=== PATIENT | female | born 1975 | race Hispanic/Latino ===

== ENCOUNTER → 2023-05-26 09:07 | Outpatient (REF) | payer OTHER, SELFPAY | LOC: WDC 09:07 | PROVIDERS: ATTENDING PHYSICIAN Physician Assistant | DX: R92.2 Inconclusive mammogram (principal) | CPT/HCPCS: 76641 ==

== ENCOUNTER → 2023-11-28 14:27 | Outpatient (REF) | payer OTHER, SELFPAY | LOC: WDC 14:27 | PROVIDERS: ATTENDING PHYSICIAN Physician Assistant | DX: R92.8 Other abnormal and inconclusive findings on diagnostic imaging of breast (principal) | CPT/HCPCS: 76642 ==

== ENCOUNTER → 2024-05-20 13:32 | Outpatient (REF) | payer OTHER, SELFPAY | LOC: WDC 13:32 | PROVIDERS: ATTENDING PHYSICIAN Physician Assistant | DX: Z12.31 Encounter for screening mammogram for malignant neoplasm of breast (principal); R92.8 Other abnormal and inconclusive findings on diagnostic imaging of breast | CPT/HCPCS: 76642; 77063; 77067 ==

== ENCOUNTER → 2024-05-27 10:01 | Outpatient (REF) | payer OTHER, SELFPAY | LOC: WDC 10:01 | PROVIDERS: ATTENDING PHYSICIAN Physician Assistant | DX: R92.8 Other abnormal and inconclusive findings on diagnostic imaging of breast (principal) | CPT/HCPCS: 77065 ==

== ENCOUNTER → 2024-06-03 06:16 | Outpatient (REF) | payer OTHER, SELFPAY ==
--- NOTE | 2024-06-03 09:25 | OID.BR.INTR ---
[facility] Breast Navigator - Initial
- -
Date of Contact: 06/03/24
Met with patient. Patient given written information on navigator services available at [facility]. Will follow up as needed per protocol.
== END ==
LOC: WDC 06:16
PROVIDERS: ATTENDING PHYSICIAN Physician Assistant
DX: R92.1 Mammographic calcification found on diagnostic imaging of breast (principal)
CPT/HCPCS: 88305; 19081; 76098; 88341; 88342; 88360; A4648

== ENCOUNTER → 2024-06-25 13:02 | Outpatient (REF) | payer OTHER, SELFPAY | LOC: WDC 13:02 | PROVIDERS: ATTENDING PHYSICIAN Surgery | DX: D05.91 Unspecified type of carcinoma in situ of right breast (principal) | CPT/HCPCS: 76641 ==

== ENCOUNTER → 2024-07-15 06:58 | Outpatient (REF) | payer OTHER, SELFPAY | LOC: WDC 06:58 | PROVIDERS: ATTENDING PHYSICIAN Surgery | DX: D05.91 Unspecified type of carcinoma in situ of right breast (principal) | CPT/HCPCS: 19281; A4648 ==

== ENCOUNTER 2024-07-16 06:08 | Day surgery (SDC) | payer OTHER, SELFPAY ==
[2024-07-01 08:39] LABS: Hematocrit 40.7 % (37.0-47.0); Hemoglobin 13.6 g/dL (12.0-16.0); Mean Corp Hgb Conc. 33.4 g/dL (33.0-37.0); Mean Corpuscular Hgb 32.4 pg (27.0-31.0); Mean Corpuscular Volume 96.9 fL (81.0-99.0); Platelet Count 149 10^3/uL (130-400); Red Cell Dist. Width 12.8 % (11.5-14.5)
[2024-07-01 09:08] LABS: ALT (SGPT) 15 U/L (0-35); AST (SGOT) 18 U/L (14-36); Albumin 3.7 g/dl (3.5-5.0); Alkaline Phosphatase 55 U/L (38-126); Blood Urea Nitrogen 14 mg/dl (7-17); Calcium 8.7 mg/dl (8.4-10.2); Carbon Dioxide 27 mmol/L (22-30); Chloride 105 mmol/L (98-107); Glucose 96 mg/dl (70-99); Potassium 4.1 mmol/L (3.5-5.1); Sodium 136 mmol/L (135-145); Total Bilirubin 0.7 mg/dl (0.2-1.3); Total Protein 6.3 g/dl (6.3-8.2); eGFR > 60.00
[2024-07-01 11:23] LABS: Prealbumin (Transthyretin) 19.5 mg/dl (17.6-36.0)
[2024-07-01 11:34] LABS: Vitamin D, 25-OH*** 75.2 ng/mL (30-80)
[2024-07-01 13:37] VITALS: BMI 19.8
[2024-07-16] VITALS (10 sets, daily range): BP systolic 97–118; BP diastolic 55–76; BMI 19.8
[2024-07-16] MEDS: NORMOSOL-R/PLASMALYTE-A 1000 IV (07:35)
[2024-07-16] MEDS: TYLENOL 1000 MG PO (07:57)
[2024-07-16] MEDS: LOVENOX 40 MG SC (10:30)
--- NOTE | 2024-07-16 12:10 | W.IMMPOSTOP ---
Surgical Immed Post Op Note
-
Primary Surgeon: Lexis
Assisting Surgeon: None
Pre-op Diagnosis: Right breast DCIS
Post-op Diagnosis: Right breast DCIS
Procedure Performed: Right localized lumpectomy and oncoplastic mastoplasty
Anesthesia Type: LMA
Specimen / Cultures: Right lumpectomy and margins
Estimated Blood Loss: 4cc
Complications: None
Operative Findings: Clip and reflector in specimen
--- NOTE | 2024-07-16 12:11 | OR.RPT ---
Operative Report
Operative Report
Date of surgery: 07/16/24
Surgeon: Lexis
Pre-Op DX: Right breast carcinoma
Post-Op DX: Right breast carcinoma
Procedure: Right localized lumpectomy and oncoplastic mastoplasty
The patient is a 49-year-old female who experienced an interval change in screening mammography leading to biopsy of right breast calcifications. This showed ductal carcinoma in situ and she presents for breast conservation surgery. On the day
prior to the procedure she presented to the breast center where a [employer] account assistant reflector was placed however the radiologist could not hear signal. On the day of surgery she presented to same-day surgical services where again I confirmed that there
was no audible signal therefore she was transferred to the breast [place] where a wire localization procedure was performed. DVT and antibiotic prophylaxis was provided. She confirmed site and procedure.
She was taken to the operating room in the supine position LMA anesthesia with TIVA was induced. Right breast was prepped and draped in usual sterile fashion. Appropriate timeout was performed by all staff.
Tissues were anesthetized with 1% lidocaine plain in a superior circumareolar incision was made sharply with the blade. Oncoplastic plane was entered and elevated using the blade and a lighted retractor. Dissection was carried over to the entry
site of the wire into the skin and the wire was delivered into the central portion of the wound. Wide lumpectomy was performed using the cautery. Time out of body was noted and the specimen was oriented for the pathologist. Specimen radiography
confirmed the presence of the biopsy clip and reflector within it. Additional margins were harvested for permanent analysis from the posterior, medial, superior, lateral, inferior, and anterior dimensions. These were arrived to this as well.
This left resulting defect of 4 x 3 cm therefore an oncoplastic closure was performed. Separate parenchymal incision was made to advance tissue into the resection cavity. Clips were placed in the resection cavity and tissues were instilled with
Marcaine 0.5% plain. The wound was closed using simple interrupted 3-0 plain deep intermediate and subcutaneous tissue and skin was closed with a running subcuticular 4-0 Monocryl. Surgical glue and a sterile compressive dressing was applied. All
sponge needle and instrument counts were correct and the patient was transferred to the recovery room in stable condition.
([id number])
== END 2024-07-16 14:00 | disposition home or self-care (01) ==
LOC: SDS 06:08
PROVIDERS: ATTENDING PHYSICIAN Surgery; FAMILY PHYSICIAN Physician Assistant
DX: D05.11 Intraductal carcinoma in situ of right breast (principal); N60.31 Fibrosclerosis of right breast
CPT/HCPCS: 19301; 88305; 88307; 19281; 36415; 76098; 80053; 82306; 84134; 85027; A4648; C1729; L8000

== ENCOUNTER → 2024-08-06 07:42 | Outpatient (REF) | payer OTHER, SELFPAY | LOC: HWRAD 07:42 | PROVIDERS: ATTENDING PHYSICIAN Advanced Practice Midwife; FAMILY PHYSICIAN Physician Assistant | DX: N84.1 Polyp of cervix uteri (principal) | CPT/HCPCS: 76830; 76856 ==

== ENCOUNTER 2024-08-24 06:22 | Day surgery (SDC) | payer OTHER, SELFPAY | END 2024-08-24 08:56 | disposition home or self-care (01) | LOC: GI 06:22 | PROVIDERS: ATTENDING PHYSICIAN Internal Medicine | DX: Z12.11 Encounter for screening for malignant neoplasm of colon (principal); K57.30 Diverticulosis of large intestine without perforation or abscess without bleeding; K62.89 Other specified diseases of anus and rectum; Z86.0101 Personal history of adenomatous and serrated colon polyps; K63.5 Polyp of colon | CPT/HCPCS: 45380; 88305 ==

== ENCOUNTER 2024-09-24 06:12 | Day surgery (SDC) | payer OTHER, SELFPAY ==
[2024-09-24] VITALS (8 sets, daily range): BP systolic 89–111; BP diastolic 53–74; BMI 20.6
[2024-09-24 08:21] LABS: Hemoglobin 12.4 g/dL (12.0-16.0)
[2024-09-24] MEDS: NORMOSOL-R/PLASMALYTE-A 1000 IV (08:25)
[2024-09-24] MEDS: TYLENOL 1000 MG PO (08:35)
== END 2024-09-24 11:03 | disposition home or self-care (01) ==
LOC: SDS 06:12
PROVIDERS: ATTENDING PHYSICIAN Obstetrics & Gynecology
DX: N93.9 Abnormal uterine and vaginal bleeding, unspecified (principal); N88.8 Other specified noninflammatory disorders of cervix uteri; N84.0 Polyp of corpus uteri; D25.0 Submucous leiomyoma of uterus
CPT/HCPCS: 58558; 88305; 85014; 85018; 86850; 86900; 86901

== ENCOUNTER → 2024-12-21 14:24 | Outpatient (REF) | payer OTHER, SELFPAY | LOC: WDC 14:24 | PROVIDERS: ATTENDING PHYSICIAN Surgery; FAMILY PHYSICIAN Physician Assistant | DX: R92.8 Other abnormal and inconclusive findings on diagnostic imaging of breast (principal) | CPT/HCPCS: 76642 ==